=== PATIENT | female | born 1995 | race Caucasian/White ===

== ENCOUNTER 2022-03-18 16:48 | Emergency (ER) | payer OTHER, SELFPAY ==
[2022-03-18 16:58] VITALS: BP 125/58; PULSE 89; RESP 14; TEMP 36.6; O2SAT 100
--- NOTE | 2022-03-18 18:25 | ED.URI ---
HPI - URI/Sore Throat General Chief Complaint: Upper Respiratory Infection Stated Complaint: Congestion/Sore Throat Time Seen by Provider: 03/18/22 18:26 Source: patient, RN notes reviewed and old records reviewed Mode of arrival: ambulatory Limitations: no limitations History of Present Illness HPI Narrative: 26-year-old female who presents to [facility] with sore throat, congestion, right sided neck pain and right ear pain for the past 2 days. Patient reports that she has been taking Tylenol and decogestant medications for her symptoms. Patient reports that she has not had COVID vaccinations or flu shot. MD elicited complaint: cough, sore throat, nasal congestion and other (right ear pain) Onset (ago): day(s) (2) Pain scale (0-10): 6 Treatments prior to arrival: acetaminophen and other (decogestant) Related Data Allergies Allergy/AdvReac Type Severity Reaction Status Date / Time No Known Allergies Allergy Verified 03/18/22 17:17 Review of Systems Review of Systems: CONSTITUTIONAL:Reports malaise, chills, sweats, or fever. EYES: Denies visual changes, redness, or discharge. ENT: Reports rhinorrhea, congestion, sinus pain, right otalgia and sore throat. CARDIOVASCULAR: Denies chest pain, palpitations, or edema. RESPIRATORY: Reports cough.? Denies dyspnea. GASTROINTESTINAL: Denies abdominal pain, nausea, vomiting, diarrhea SKIN: Denies rash or itching. MUSCULOSKELETAL: Denies myalgia. NEUROLOGIC: Denies headache. All systems reviewed & are unremarkable except as noted in HPI and below PMFSH Social History Social History (Updated 03/29/22 @ 21:41 by Avril Ayala NP) Smoking status: Never smoker Alcohol intake: current Alcohol use details: social Substance use type: does not use Gender identity (if verbalized by the patient): Female Comments At time of signature, agree with nursing past medical, surgical, social and family history. There is no relevant family history pertinent to the presenting complaint Exam Narrative: GENERAL: Well-appearing, well-nourished, and in no acute distress. HEAD: Normocephalic EYES: PERRLA, conjunctivae clear ENT: Nares clear, turbinates edematous and erythematous, clear discharge. Mucous membranes moist.Right TM red aand bulging, Left TM pearly hutchinson with dull light reflex; no tragal tenderness. Oropharynx erythematous without lesions. Tonsils enlarged and without exudate, no drooling, no hoarseness, no trismus, uvula midline., post nasal drainage NECK: Supple. No lymphadenopathy CHEST: Clear to auscultation, breath sounds equal. No wheezing, rhonchi, rales, or stridor. No respiratory distress, speaks in full sentences,occasional dry cough SAO2 100% on room air HEART: Regular rate and rhythm. No murmur heard. SKIN: Warm, dry, no rash. NEURO: Alert and oriented x3. PSYCH: Normal mood and affect Course Course Emergency Course: Patient is aware of diagnosis, understands and agrees to treatment plan.? Anticipatory guidance given.? Patient agrees to follow-up as directed and is aware of reasons to seek care at the emergency department. Portions of this record may have been created with voice recognition software Level of Care: Express Care Visit Vital Signs Vital signs: Vital Signs Temperature 36.6 C 03/18/22 16:58 Pulse Rate 89 03/18/22 16:58 Respiratory Rate 14 03/18/22 16:58 Blood Pressure 125/58 L 03/18/22 16:58 Pulse Oximetry 100 03/18/22 16:58 Oxygen Delivery Room Air 03/18/22 16:58 Temperature 36.6 C 03/18/22 16:58 Pulse Rate 89 03/18/22 16:58 Respiratory Rate 14 03/18/22 16:58 Blood Pressure 125/58 L 03/18/22 16:58 Pulse Oximetry 100 03/18/22 16:58 Oxygen Delivery Room Air 03/18/22 16:58 Reviewed MDM - URI/Sore Throat MDM Narrative Medical decision making narrative: Differential diagnosis considered: [place] virus, strep pharyngitis, allergic rhinitis, upper respiratory tract infectio
== END 2022-03-18 18:35 | disposition home or self-care (01) ==
PROVIDERS: Emergency Provider Registered Nurse
DX: H66.91 Otitis media, unspecified, right ear (principal)
CPT/HCPCS: 99213; G0463